=== PATIENT | female | born 1945 | race Caucasian/White ===

== ENCOUNTER → 2020-10-27 15:22 | Outpatient (CLI) | payer OTHER, SELFPAY ==
--- NOTE | ~2020-10-27 | XR_ITS ---
EXAMINATION: XR knee RT min 4V DATE: 10/27/2020 15:38 INDICATION: Right knee pain TECHNIQUE: Weight bearing anteroposterior and Vera, sunrise, and flexed lateral views of the rig ht knee were obtained COMPARISON: None. FINDINGS: Osteopenia. Genu valgus resulting from advanced osteoarthritis in the lateral compartment with loss o f height of the lateral tibial plateau. Chondrocalcinosis and tiny marginal osteophytes in the medial compartment. Mild to moderate joint space narrowing and small to moderate size marginal osteophytes in the patellofemoral compartment. Very small joint effusion at the suprapatellar pouch on the latera l projection. Soft tissues are otherwise unremarkable. IMPRESSION: 1. 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 Reviewed, dictated and finalized at location A.
== END ==
PROVIDERS: Visit Provider Nurse Practitioner Adult Health
DX: M25.561 Pain in right knee (principal); M17.11 Unilateral primary osteoarthritis, right knee
CPT/HCPCS: 73564